=== PATIENT | female | born 1970 | race Caucasian/White ===

== ENCOUNTER 2021-12-12 16:37 | Emergency (ER) | payer MEDICAID ==
[~2021-12-12] VITALS: Ht 162.6 cm; Wt 58.0 kg
[2021-12-12 16:37] VITALS: BP 121/56
[2021-12-12] MEDS ORDERED: SULF1TAB49 PO (17:06)
[2021-12-12] MEDS ORDERED: bacitracin 15gm ointment TP ONE (17:10)
== END 2021-12-12 17:29 | disposition home or self-care (01) ==
LOC: ER 16:38
DX: L02.415 Cutaneous abscess of right lower limb (principal); Z91.018 Allergy to other foods; Z79.899 Other long term (current) drug therapy
CPT/HCPCS: 99283